=== PATIENT | female | born 1985 | race Caucasian/White ===

== ENCOUNTER 2016-09-15 18:36 | Emergency (ER) | payer OTHER ==
[~2016-09-15] VITALS: Ht 152.4 cm; Wt 85.0 kg
[~2016-09-15 18:36] MED LIST: Z.0.NO CURRENT MEDS
[2016-09-15 18:38] VITALS: BP 127/79; PULSE 90; RESP 16; TEMP 98.2; O2SAT 99
[2016-09-15 23:16] LABS: BACTERIA, URINE MANY /hpf; BLOOD, URINE SMALL (NEG); COMMENT (UR) CULTURE INDICATED; CULTURE IF INDICATED CULTURE INDICATED; GLUCOSE,URINE NEG (NEG); KETONE, URINE TRACE mg/dL (NEG); MUCUS URINE MANY /lpf (OCC); PH, URINE 5.5 (5.0-8.5); SQUAMOUS EPITHELIAL CELL URINE 1 /hpf (0-5); URINE COLOR YELLOW (YELLW/STRAW)
[2016-09-15 23:17] LABS: NITRITE,URINE POS (NEG)
[2016-09-15 23:22] LABS: AUTOMATED NEUTROPHIL # 3.7 TH/MM3 (1.8-7.7); BASOPHIL % 0.3 % (0.0-2.0); EOSINOPHIL # 0.1 TH/MM3 (0-0.4); EOSINOPHIL % 1.1 % (0.0-4.0); HEMATOCRIT 35.7 % (35.0-46.0); HEMO FLAGS DIFF FINAL; LYMPH % 46.3 % (9.0-44.0); LYMPHOCYTE # 3.7 TH/MM3 (1.0-4.8); MEAN CELL VOLUME 81.6 FL (80.0-100.0); MEAN CORPUSCULAR HEMOGLOBIN 27.9 PG (27.0-34.0); MEAN CORPUSCULAR HGB CONC 34.2 % (32.0-36.0); NEUT % 46.3 % (16.0-70.0); PLATELET COUNT 235 TH/MM3 (150-450); RED BLOOD COUNT 4.38 MIL/MM3 (4.00-5.30)
[2016-09-15 23:32] LABS: POTASSIUM 3.3 MEQ/L (3.5-5.1)
--- NOTE | 2016-09-16 00:52 | RADRPT ---
EXAM DATE/TIME: 09/15/2016 23:52 [place] COMPARISON: No previous studies available for comparison. INDICATIONS : Pelvic spotting and cramping. LAB(S): Beta-hC,283 MEDICAL HISTORY : . Asthma. Manic depression. Schizophrenia. Bipolar. Depression. Anxiety. Substance abuse . SURGICAL HISTORY : Tonsillectomy. section. Inguinal hernia repair. ENCOUNTER: Initial ACUITY: 2 days PAIN SCORE: 2/10 LOCATION: Bilateral pelvis MEASUREMENTS: UTERUS: 10.2 x 6.1 x 4.9 cm ENDOMETRIAL STRIPE: 17 mm RIGHT OVARY: 2.6 x 1.6 x 1.7 cm LEFT OVARY: 1.9 x 2.1 x 2.4 cm FINDINGS: UTERUS: Intrauterine gestation with average estimated gestational sac diameter of 6.4 mm which is too early t o date. No discrete internal architecture. RIGHT OVARY: Ovary contains no mass or significant cystic lesion. LEFT OVARY: Ovary contains no mass or significant cystic lesion. MISCELLANEOUS: No free fluid. CONCLUSION: Early IUP Farhad Morales MD on September 16, 2016 at 0:48 Board Certified Radiologist. This report was verified electronically.
[2016-09-16] MEDS ORDERED: CEPH-460 PO (01:27)
--- NOTE | 2016-09-16 01:27 | PD ---
HPI Chief Complaint: Related Problem Time Seen by Provider: 21:57 Travel History International Travel<30 days: No Contact w/Intl Traveler<30days: No Traveled to known affect area: No History of Present Illness HPI Patient is a 31-year-old female who comes in complaining of vaginal bleeding and lower abdominal cramping. She says that she is about 6 weeks' . She says she went to the bathroom yesterday and noticed some blood when she wiped herself. She has had a couple of episodes of spotting. She denies any past of clots. She denies nausea or vomiting. She denies fever or chills. She says she has a history of frequent UTIs and she believes she probably has one again. PFSH Past Medical History Asthma: Yes Bipolar Disorder: Yes Anxiety: Yes Depression: Yes Diminished Hearing: No Medical other: Yes (PTSD) Psychiatric: Yes (Manic Depression and Suicidal ) Schizophrenia: Yes Tetanus Vaccination: Unknown Influenza Vaccination: No ?: LMP: 08/03/16 : 4 Para: 2 Miscarriage: 0 : 1 Past Surgical History Abdominal Surgery: Yes (Inguinal repair ) Section: Yes Gynecologic Surgery: Yes ( ) Oral Surgery: Yes (wisdome teeth) Tonsillectomy: Yes Social History Alcohol Use: No Tobacco Use: Yes (0.5 ppd) Substance Use: Yes (methadone, occasional marijaunia) Allergies-Medications (Allergen,Severity, Reaction): Coded Allergies: No Known Allergies (Unverified , 05/07/12) Reported Meds & Prescriptions Reported Meds & Active Scripts Active Keflex (Cephalexin) 500 Mg Cap 500 Mg PO Q8H 7 Days Reported No Current Meds (Miscellaneous Medication) Misc Review of Systems Except as stated in HPI: all other systems reviewed are Neg General / Constitutional: No: Fever, Chills HENT: No: Headaches, Lightheadedness Cardiovascular: No: Chest Pain or Discomfort Respiratory: No: Shortness of Breath Gastrointestinal: Positive: Abdominal Pain Genitourinary: Positive: Vaginal Bleeding Musculoskeletal: No: Weakness Skin: No Rash, No Change in Pigmentation Neurologic: No: Weakness, Dizziness Physical Exam Narrative GENERAL: Awake and alert, in no acute distress. SKIN: Warm and dry. HEAD: Atraumatic. Normocephalic. EYES: Pupils equal and round. No scleral icterus. ENT: Mucous membranes pink and moist. NECK: Trachea midline. No JVD. CARDIOVASCULAR: Regular rate and rhythm. No murmur appreciated. RESPIRATORY: No accessory muscle use. Clear to auscultation. Breath sounds equal bilaterally. GASTROINTESTINAL: Abdomen soft, non-tender, nondistended. : Pelvic exam performed with female roller skate repairer. Scant white discharge seen. No active bleeding. Os is closed. No CMT. MUSCULOSKELETAL: No obvious deformities. No clubbing. No cyanosis. No edema. NEUROLOGICAL: Awake and alert. No obvious cranial nerve deficits. Motor grossly within normal limits. Normal speech. PSYCHIATRIC: Appropriate mood and affect; insight and judgment normal. Data Data Last Documented VS Vital Signs Date Time Temp Pulse Resp B/P Pulse Ox O2 Delivery O2 Flow Rate FiO2 09/16/16 01:53 65 18 123/61 96 09/15/16 18:38 98.2 Room Air Orders Complete Blood Count With Diff (09/15/16 22:13) Basic Metabolic Panel (Bmp) (09/15/16 22:13) Urinalysis - C+S If Indicated (09/15/16 22:13) Ed Urine Pregnancytest Poc (09/15/16 22:13) Beta Hcg (Quant/Titer) (09/15/16 22:13) Type And Screen (09/15/16 22:13) Urine Culture (09/15/16 22:50) Wet Prep Profile (09/15/16 23:30) Gc And Chlamydia Pcr (09/15/16 23:30) Us Pelvis (Ques Pr/Ect)W Trans (09/15/16 ) Labs Laboratory Tests Test 09/15/16 09/15/16 09/15/16 22:50 22:55 23:30 Urine Color YELLOW Urine Turbidity HAZY Urine pH 5.5 Urine Specific [place] 1.029 Urine Protein TRACE mg/dL Urine Glucose (UA) NEG mg/dL Urine Ketones TRACE mg/dL Urine Occult Blood SMALL Urine Nitrite POS Urine Bilirubin NEG Urine Urobilinogen 2.0 MG/DL Urine Leukocyte Esterase LARGE Urine RBC 1 /hpf Urine WBC 19 /hpf Urine Squamous Epithelial 1 /hpf Cells Urine Bacteria MANY /hpf Urine Mucus MANY /lpf Microscopic Urinalysis Comment CULTURE INDICATED Sodium Level 140 MEQ/L Potassium Level 3.3 MEQ/L Chloride Level 106 MEQ/L Carbon Dioxide Level 28.0 MEQ/L Anion Gap 6 MEQ/L Blood Urea Nitrogen 14 MG/DL Creatinine 1.09 MG/DL Estimat Glomerular Filtration 59 ML/MIN Rate Random Glucose 90 MG/DL Calcium Level 8.2 MG/DL Human Chorionic Gonadotropin, 3283 MIU/ML Quant Blood Type A POSITIVE Antibody Screen NEGATIVE Blood Bank Comment White Blood Count 8.0 TH/MM3 Red Blood Count 4.38 MIL/MM3 Hemoglobin 12.2 GM/DL Hematocrit 35.7 % Mean Corpuscular Volume 81.6 FL Mean Corpuscular Hemoglobin 27.9 PG Mean Corpuscular Hemoglobin 34.2 % Concent Red Cell Distribution Width 14.0 % Platelet Count 235 TH/MM3 Mean Platelet Volume 7.7 FL Neutrophils (%) (Auto) 46.3 % Lymphocytes (%) (Auto) 46.3 % Monocytes (%) (Auto) 6.0 % Eosinophils (%) (Auto) 1.1 % Basophils (%) (Auto) 0.3 % Neutrophils # (Auto) 3.7 TH/MM3 Lymphocytes # (Auto) 3.7 TH/MM3 Monocytes # (Auto) 0.5 TH/MM3 Eosinophils # (Auto) 0.1 TH/MM3 Basophils # (Auto) 0.0 TH/MM3 CBC Comment DIFF FINAL Differential Comment Clue Cells (Wet Prep) NONE SEEN Vaginal Trichomonas (Wet Prep) NONE SEEN Vaginal Yeast (Wet Prep) NONE SEEN Chlamydia trachomatis DNA NOT DETECTED (PCR) Neisseria gonorrhoeae DNA NOT DETECTED (PCR) MDM Medical Decision Making Medical Screen Exam Complete: Yes Emergency Medical Condition: Yes Medical Record Reviewed: Yes Differential Diagnosis UTI versus threatened versus completed Narrative Course Patient is a 31-year-old female comes in complaining of vaginal spotting during her . Exam shows scant amount of white discharge. IV so as, labs sent. Patient is Rh+. Urinalysis is positive for UTI. Ultrasound performed shows early IUP. Patient will be discharged home with prescription for Keflex. Advised to follow-up with OB. Advised to return to the ED as needed for any worsening symptoms. Diagnosis Primary Impression: UTI (urinary tract infection) Qualified Code: N30.00 - Acute cystitis without hematuria Additional Impression: Threatened Patient Instructions: General Instructions, Threatened Miscarriage (ED), Urinary Tract Infection in (ED) Additional Instructions: Take all of your antibiotics. Follow up with OB. Return to the ED as needed for any worsening symptoms. Scripts Cephalexin (Keflex)500 Mg [id number] Mg PO Q8H 7 Days Ref 0 Prov:Virginia Medina MD 09/16/16 Disposition: 01 DISCHARGE HOME Condition: Stable Virginia Medina MD Sep 16, 2016 01:27
[2016-09-16 01:53] VITALS: BP 123/61
[2016-09-16 04:30] LABS: CHLAMYDIA PCR NOT DETECTED (NOT DETECT); NEISSERIA PCR NOT DETECTED (NOT DETECT)
== END 2016-09-16 02:10 | disposition home or self-care (01) ==
LOC: NEPC 18:36
DX: O23.11 Infections of bladder in pregnancy, first trimester (principal); O20.0 Threatened abortion; F17.200 Nicotine dependence, unspecified, uncomplicated; Z87.09 Personal history of other diseases of the respiratory system; Z86.59 Personal history of other mental and behavioral disorders; Z3A.01 Less than 8 weeks gestation of pregnancy
CPT/HCPCS: 76700; 76817; 80048; 81001; 84702; 84703; 85025; 86850; 86900; 86901; 87077; 87086; 87186; 87210; 87491; 87591

== ENCOUNTER → 2017-12-13 | Outpatient (CLI) | payer MEDICAID ==
[~2017-12-13] MED LIST changes: +CEPH-460 PO
--- NOTE | 2017-12-13 14:45 | EKG ---
Date Performed: 12/13/2017 Time Performed: 08:49:16 PTAGE: 32 years EKG: Sinus rhythm . Inferior and ant/septal T wave changes are nonspecific Low QRS voltages in precordial leads Borderl ine ECG NO PREVIOUS TRACING DOCTOR: Kalia Marrero Interpretating Date/Time 12/13/2017 14:43:54
== END ==
LOC: HCAV 08:34
DX: F41.0 Panic disorder [episodic paroxysmal anxiety] (principal); F33.1 Major depressive disorder, recurrent, moderate; F11.11 Opioid abuse, in remission; R94.31 Abnormal electrocardiogram [ECG] [EKG]
CPT/HCPCS: 93005